=== PATIENT | female | born 1935 | race Caucasian/White ===

== ENCOUNTER 2019-09-27 10:52 | Inpatient (IN) | payer OTHER ==
--- NOTE | 2019-09-27 12:07 | PDOC ---
History of Present Illness - General Chief Complaint: Wound Stated Complaint: WOUND CARE Time Seen by Provider: 09/27/19 11:23 History Source: Patient, Old Records Exam Limitations: No Limitations - History of Present Illness Initial Comments: 09/27/19 12:40 83y F with PMH of CHF, HTN, DM, COPD, Venous Stasis presenting from [facility] for L lower leg wound. Patient states she has had this wound for about 1 year and it is not getting better and endorses pain. She was sent here for admission. Pt denies fevers, chills, back pain, chest pain, sob, n/v/d, groin pain. PMD: PMH: see hpi PSH: none Allergies: linezolid, vancomycin, Sulfa Social: smokes 3 cigarettes/day Past History - Past Medical History Allergies/Adverse Reactions: Allergies Allergy/AdvReac Type Severity Reaction Status Date / Time linezolid [From Zyvox] Allergy Unknown Verified 09/27/19 10:55 Sulfa (Sulfonamide Allergy Unknown Verified 09/27/19 10:55 Antibiotics) vancomycin Allergy Unknown Verified 09/27/19 10:55 clindamycin Allergy Verified 09/27/19 10:55 bactrim ds Allergy Unknown Uncoded 09/27/19 10:55 Home Medications: Ambulatory Orders Acetaminophen [Tylenol] 2 tab PO Q6H PRN 01/07/19 Alendronate Sodium/Vitamin D3 [Fosamax Plus D 70 mg-5,600 Iu vIT d] 1 tab PO Q7D 01/07/19 Aspirin [ASA -] 81 mg PO DAILY 01/07/19 Bethanechol Chloride [Urecholine] 1 tab PO TID 01/07/19 Finasteride 1 tab PO DAILY 01/07/19 Furosemide [Lasix -] 20 mg PO BID 01/07/19 Lamotrigine 100 mg PO BID 01/07/19 Magnesium Hydroxide [Milk of Magnesia -] 30 ml PO DAILY PRN 01/07/19 Metoprolol Succinate [Toprol XL -] 12.5 mg PO DAILY 01/07/19 Multivitamin [One-Daily Multi-Vitamin] 1 tab PO DAILY 01/07/19 Olanzapine [Zyprexa -] 1 tab PO HS 01/07/19 Pramipexole Dihydrochloride [Mirapex -] 0.125 mg PO BID 01/07/19 Tiotropium [place] [Spiriva] 1 cap IH DAILY 01/07/19 Fluoxetine HCl 30 mg PO DAILY 04/01/19 Ascorbic Acid [Vitamin C -] 1 tab PO DAILY 04/15/19 Collagenase Clostridium Hist. [Santyl -] 1 applic TD BID 09/27/19 Lamotrigine 100 mg PO BID 09/27/19 Metoprolol Succinate 09/27/19 Anemia: Yes COPD: No CHF: Yes Diabetes: Yes (Mild diabetic) GI Disorders: No Disorders: Yes (INCONTENIENCE) HTN: Yes Liver Disease: No Psychiatric Problems: Yes Seizures: Yes Thyroid Disease: No - Surgical History Abdominal Surgery: Yes (HERNIA) - Psycho Social/Smoking Cessation Hx Smoking History: Current every day smoker Have you smoked in the past 12 months: Yes Number of Cigarettes Smoked Daily: 6 Information on smoking cessation initiated: Yes Hx Alcohol Use: No Drug/Substance Use Hx: No Substance Use Type: None Review of Systems - Review of Systems Constitutional: No: Chills, Fever, Malaise HEENTM: No: Symptoms Reported Respiratory: No: Symptoms reported Cardiac (ROS): No: Symptoms Reported ABD/GI: No: Symptoms Reported : No: Symptoms Reported Musculoskeletal: No: Symptoms Reported Integumentary: Yes: See HPI Neurological: No: Symptoms reported *Physical Exam - Vital Signs Last Vital Signs Temp Pulse Resp BP Pulse Ox 97.6 F 92 H 20 109/52 L 96 09/27/19 10:56 09/27/19 10:56 09/27/19 10:56 09/27/19 10:56 09/27/19 10:56 - Physical Exam General Appearance: Yes: Appropriately Dressed, Obese. No: Apparent Distress HEENT: positive: EOMI, ALVINO, Other (edentulous) Neck: positive: Trachea midline, Supple Respiratory/Chest: positive: Lungs Clear, Normal Breath Sounds. negative: Paradoxal Breathing, Crackles, Rales, Rhonchi, Stridor, Wheezing Cardiovascular: positive: Regular Rhythm, Regular Rate, S1, S2. negative: Edema , JVD, Murmur Vascular Pulses: Dorsalis-Pedis (R): 1+, Doralis-Pedis (L): 1+ Gastrointestinal/Abdominal: positive: Normal Bowel Sounds, Soft. negative: Tender Musculoskeletal: negative: CVA Tenderness Extremity: positive: Normal Capillary Refill, Pedal Edema (bilateral edema in lower extremities. LLE below knee shows circumferencial venous stasis ulcer with fibrotic tissue and weeping. Erythematous.), Swelling, Calf Tenderness (LLE ), Erythema Integumentary: positive: Normal Color, Dry, Warm, Erythema (below knee with swelling and warmth. No streaking, no evidence of groin celulitis) Neurologic: positive: indigo vat tender cloth II-XII NML intact, Fully Oriented, Alert, Normal Mood/ Affect, Normal Response, Motor Strength 12/19 ED Treatment Course - LABORATORY CBC & Chemistry Diagram: 09/27/19 11:20 09/27/19 11:20 - RADIOLOGY Radiology Studies Ordered: Category Date Time Status CHEST X-RAY PORTABLE* [RAD] Stat Radiology 09/27/19 11:23 Taken Medical Decision Making - Medical Decision Making 83y F presenting for LLE cellulitis and wound care vitals are wnl. suspect cellulitis superimposed on venous stasis ulcer. will perform labs, cultures and cxr, esr, crp abx. pt is allergic to vanc, will call Dr. Velásquez. given Zosyn. 09/27/19 12:[address] Velásquez, went straight to voicectil, LM. overhead paged as well; no response 09/27/19 15:46 no white count, elevated esr and crp no evidence of osteo on xr of lower extremity. will admit to Dr. Romero Discharge - Discharge Information Problems reviewed: Yes Clinical Impression/Diagnosis: Cellulitis Qualifiers: Site of cellulitis: extremity Site of cellulitis of extremity: lower extremity Laterality: left Qualified Code(s): L03.116 - Cellulitis of left lower limb Venous stasis ulcer Qualifiers: Venous stasis ulcer site: other part of lower leg Varicose vein presence: unspecified whether present Laterality: left Non-pressure ulcer stage: unspecified non-pressure ulcer stage Qualified Code(s): I83.028 - Varicose veins of left lower extremity with ulcer other part of lower leg Condition: Stable - Admission Yes - Follow up/Referral - Patient Discharge Instructions - Post Discharge Activity
[2019-09-27 12:15] LABS: BASO % 0.2 % (0-2.0); EOS % 2.9 % (0-4.5); HEMATOCRIT 31.8 % (32.4-45.2); HEMOGLOBIN 10.3 GM/dL (10.7-15.3); LYMPH % 20.3 % (8-40); MCH 28.6 pg (25.7-33.7); MCHC 32.5 g/dl (32.0-36.0); MEAN CELL VOLUME 88.1 fl (80-96); MEAN PLT VOLUME 7.4 fl (7.5-11.1); MONO % 8.8 % (3.8-10.2); NEUT % 67.8 % (42.8-82.8); PLATELET COUNT 178 K/MM3 (134-434); RBC 3.61 M/mm3 (3.60-5.2); RDW 15.5 % (11.6-15.6); WHITE BLOOD COUNT 6.3 K/mm3 (4.0-10.0)
[2019-09-27] MEDS ORDERED: PIPERACILLIN/TAZOB 3.375 GM 3.375 GM in DEXTROSE 5%-WATER - 50 ML IVPB ONE (12:25)
[2019-09-27 12:31] LABS: INR 1.13 (0.83-1.09); PROTHROMBIN TIME (PATIENT) 13.3 SEC (9.7-13.0)
[2019-09-27 12:34] LABS: ACTIVATED PTT 92.6 SECONDS (25.2-36.5)
[2019-09-27] MEDS ORDERED: PIPERACILLIN/TAZOB 3.375 GM 3.375 GM/50 ML BAG IVPB ONE (12:53)
[2019-09-27 13:05] LABS: ALBUMIN 2.6 g/dl (3.4-5.0); ALK PHOS 100 U/L (45-117); ANION GAP 7 MMOL/L (8-16); BILIRUBIN,TOTAL 0.5 mg/dL (0.2-1); BLOOD UREA NITROGEN 52.8 mg/dL (7-18); CALCIUM 8.6 mg/dL (8.5-10.1); CHLORIDE 104 mmol/L (98-107); CO2 25 mmol/L (21-32); CREATININE 1.2 mg/dL (0.55-1.3); GLUCOSE,RANDOM 98 mg/dL (74-106); POTASSIUM 4.5 mmol/L (3.5-5.1); SGOT/AST 21 U/L (15-37); SGPT/ALT 18 U/L (13-61); SODIUM 136 mmol/L (136-145); TOT PROT 6.5 g/dl (6.4-8.2)
--- NOTE | 2019-09-27 13:28 | PDOC ---
Attending Attestation - Resident Resident Name: Abby Alicia - ED Attending Attestation I have performed the following: I have examined & evaluated the patient, The case was reviewed & discussed with the resident, I agree w/resident's findings & plan - HPI HPI: 09/27/19 13:26 83-year-old female sent from [facility] for acute infection of chronic left lower extremity wounds/ulcers. Patient reports increasing pain, denies fevers or chills. - Physicial Exam PE: 09/27/19 13:26 Afebrile here, hemodynamically stable Alert, no acute distress Heart is regular, lungs are clear Abdomen benign Circumferential left lower extremity mid lower leg wounds, scattered large ulcerations without muscle exposure or bone exposure, positive cellulitis, positive distal pulses without foot gangrene - Medical Decision Making 09/27/19 13:27 83-year-old female with chronic left lower extremity skin ulcerations now with superimposed infection, sent from [facility] by infectious disease for antibiotics and wound care. Labs including blood and wound cultures IV antibiotics Left lower leg x-ray ID and vascular consults Admit Heart Score/ECG Review #1 ECG reviewed & interpreted by me at: 11:50 General ECG Interpretation: Sinus Rhythm, Normal Rate (83), Normal Intervals ( qtc 460), No acute ischemic changes (inf q wave III/AVF)
[2019-09-27] MEDS ORDERED: ACETAMINOPHEN 1000 MG/100 ML VIAL (NON FORMULARY) IVPB ONE (14:02)
[2019-09-27] MEDS ORDERED: ACETAMINOPHEN INJECTION 100 ML IVPB ONE (14:04)
--- NOTE | 2019-09-27 16:55 | HP ---
Admitting History and Physical - Primary Care Physician PCP: Nicholas Romero - Admission History of Present Illness: 83y F with PMH of CHF, HTN, DM, COPD, Venous Stasis presenting from [facility] for L lower leg wound. Patient states she has had this wound for about 1 year and it is not getting better and endorses pain. She was sent here for admission. Pt denies fevers, chills, back pain, chest pain, sob, n/v/d, groin pain. - Past Medical History Cardiovascular: Yes: CHF, HTN Endocrine: Yes: Diabetes Mellitus - Smoking History Smoking history: Current every day smoker Have you smoked in the past 12 months: Yes Aproximately how many cigarettes per day: 6 - Alcohol/Substance Use Hx Alcohol Use: No Home Medications - Allergies Allergies/Adverse Reactions: Allergies Allergy/AdvReac Type Severity Reaction Status Date / Time linezolid [From Zyvox] Allergy Unknown Verified 09/27/19 10:55 Sulfa (Sulfonamide Allergy Unknown Verified 09/27/19 10:55 Antibiotics) vancomycin Allergy Unknown Verified 09/27/19 10:55 clindamycin Allergy Verified 09/27/19 10:55 bactrim ds Allergy Unknown Uncoded 09/27/19 10:55 - Home Medications Home Medications: Ambulatory Orders Acetaminophen [Tylenol] 2 tab PO Q6H PRN 01/07/19 Alendronate Sodium/Vitamin D3 [Fosamax Plus D 70 mg-5,600 Iu vIT d] 1 tab PO Q7D 01/07/19 Aspirin [ASA -] 81 mg PO DAILY 01/07/19 Bethanechol Chloride [Urecholine] 1 tab PO TID 01/07/19 Finasteride 1 tab PO DAILY 01/07/19 Furosemide [Lasix -] 20 mg PO BID 01/07/19 Lamotrigine 100 mg PO BID 01/07/19 Magnesium Hydroxide [Milk of Magnesia -] 30 ml PO DAILY PRN 01/07/19 Metoprolol Succinate [Toprol XL -] 12.5 mg PO DAILY 01/07/19 Multivitamin [One-Daily Multi-Vitamin] 1 tab PO DAILY 01/07/19 Olanzapine [Zyprexa -] 1 tab PO HS 01/07/19 Pramipexole Dihydrochloride [Mirapex -] 0.125 mg PO BID 01/07/19 Tiotropium [place] [Spiriva] 1 cap IH DAILY 01/07/19 Fluoxetine HCl 30 mg PO DAILY 04/01/19 Ascorbic Acid [Vitamin C -] 1 tab PO DAILY 04/15/19 Collagenase Clostridium Hist. [Santyl -] 1 applic TD BID 09/27/19 Lamotrigine 100 mg PO BID 09/27/19 Metoprolol Succinate 09/27/19 Physical Examination Vital Signs: Vital Signs Temperature 97.6 F 09/27/19 10:56 Pulse Rate 92 H 09/27/19 10:56 Respiratory Rate 09/27/19 10:56 Blood Pressure 109/52 L 09/27/19 10:56 O2 Sat by Pulse Oximetry (%) 96 09/27/19 10:56 Constitutional: Yes: No Distress HENT: Yes: Atraumatic Neck: Yes: Supple Cardiovascular: Yes: Regular Rate and Rhythm Respiratory: Yes: CTA Bilaterally Gastrointestinal: Yes: Normal Bowel Sounds Extremities: Yes: Other (L gurpreet cellulitis) Neurological: Yes: Alert, Oriented Labs: CBC, BMP 09/27/19 11:20 09/27/19 11:20 Problem List - Problems (1) HTN (hypertension) Assessment/Plan: monitor on meds Code(s): I10 - ESSENTIAL (PRIMARY) HYPERTENSION (2) Cellulitis Assessment/Plan: iv abx id on board wound care Code(s): L03.90 - CELLULITIS, UNSPECIFIED Qualifiers: Site of cellulitis: extremity Site of cellulitis of extremity: lower extremity Laterality: left Qualified Code(s): L03.116 - Cellulitis of left lower limb (3) Venous stasis ulcer Code(s): I83.009 - VARICOSE VEINS OF UNSP LOWER EXTREMITY W ULCER OF UNSP SITE; L97.909 - NON-PRS CHRONIC ULC UNSP PRT OF UNSP LOW LEG W UNSP SEVERITY Qualifiers: Venous stasis ulcer site: other part of lower leg Varicose vein presence: unspecified whether present Laterality: left Non-pressure ulcer stage: unspecified non-pressure ulcer stage Qualified Code(s): I83.028 - Varicose veins of left lower extremity with ulcer other part of lower leg; L97.829 - Non- pressure chronic ulcer of other part of left lower leg with unspecified severity Assessment/Plan Laboratory Tests 09/27/19 09/27/1909/27/20 11:20 11:20 11:20 WBC 6.3 RBC 3.61 Hgb 10.3 L Hct 31.8 L MCV 88.1 MCH 28.6 MCHC 32.5 RDW 15.5 Plt Count 178 D MPV 7.4 L Absolute Neuts (auto) 4.3 Neutrophils % 67.8 Lymphocytes % 20.3 Monocytes % 8.8 Eosinophils % 2.9 Basophils % 0.2 Nucleated RBC % 0 ESR 89 H PT with INR INR PTT (Actin FS) Sodium 136 Potassium 4.5 Chloride 104 Carbon Dioxide 25 Anion Gap 7 L BUN 52.8 H Creatinine 1.2 Est GFR (CKD-EPI)AfAm 48.40 Est GFR (CKD-EPI)NonAf 41.76 Random Glucose 98 Calcium 8.6 Total Bilirubin 0.5 AST 21 ALT 18 Alkaline Phosphatase 100 Troponin I < 0.02 C-Reactive Protein 5.7 H Total Protein 6.5 Albumin 2.6 L 09/27/19 11:20 WBC RBC Hgb Hct MCV MCH MCHC RDW Plt Count MPV Absolute Neuts (auto) Neutrophils % Lymphocytes % Monocytes % Eosinophils % Basophils % Nucleated RBC % ESR PT with INR 13.30 H INR 1.13 H PTT (Actin FS) 92.6 H Sodium Potassium Chloride Carbon Dioxide Anion Gap BUN Creatinine Est GFR (CKD-EPI)AfAm Est GFR (CKD-EPI)NonAf Random Glucose Calcium Total Bilirubin AST ALT Alkaline Phosphatase Troponin I C-Reactive Protein Total Protein Albumin Active Medications Generic Name Dose Route Start Last Admin Trade Name Freq PRN Reason Stop Dose Admin Ascorbic Acid 500 mg 09/28/19 10:00 09/28/19 09:24 Vitamin C - PO 500 mg DAILY EVELINA Administration Aspirin 81 mg 09/28/19 10:00 09/28/19 09:24 Asa - PO 81 mg DAILY EVELINA Administration Bethanechol Chloride 50 mg 09/27/19 22:00 09/28/19 13:32 Urecholine - PO 50 mg TID EVELINA Administration Finasteride 5 mg 09/28/19 10:00 09/28/19 10:29 Proscar - PO 5 mg DAILY EVELINA Administration Fluoxetine HCl 10 mg/ 30 mg 09/28/19 10:00 09/28/19 11:11 Fluoxetine HCl 20 mg PO 30 mg DAILY EVELINA Administration Furosemide 20 mg 09/28/19 06:00 09/28/19 13:31 Lasix - PO 20 mg BIDLASIX EVELINA Administration Heparin Sodium (Porcine) 5,000 unit 09/27/19 22:00 09/28/19 09:24 Heparin - SQ 5,000 unit BID EVELINA Administration Piperacillin Sod/Tazobactam 50 mls @ 100 mls/hr 09/28/19 12:45 09/28/19 17:52 Sod 3.375 gm/ Dextrose IVPB Not Given Q8H-IV EVELINA Protocol Lamotrigine 100 mg 09/27/19 22:00 09/28/19 10:30 Lamictal - PO 100 mg BID EVELINA Administration Metoprolol Succinate 12.5 mg 09/28/19 10:00 09/28/19 09:24 Toprol Xl - PO 12.5 mg DAILY EVELINA Administration Pramipexole Dihydrochloride 0.125 mg 09/27/19 22:00 09/28/19 09:25 Mirapex - PO 0.125 mg BID EVELINA Administration Tiotropium [place] 2 puff 09/28/19 10:00 09/28/19 11:11 Spiriva Respimat IH 2 puff DAILY EVELINA Administration
[2019-09-27 18:34] VITALS: BMI 27.0
[2019-09-27] MEDS ORDERED: PT OWN MED DRAWER 7, Y5N ONE (21:10)
[2019-09-27] MEDS: lamoTRIgine 100 MG TABLET PO SCH (21:57)
[2019-09-27] MEDS: HEPARIN NA (PORCINE) 5,000 UNITS/ML 1ML VIAL SQ SCH (21:57)
[2019-09-27] MEDS: BETHANECHOL CHLORIDE 25 MG TABLET PO SCH (21:57)
[2019-09-27] MEDS: PRAMIPEXOLE DIHYDROCHLORIDE 0.125 MG TABLET PO SCH (21:57)
[2019-09-28] MEDS: BETHANECHOL CHLORIDE 25 MG TABLET PO SCH ×3 (06:34→21:07)
[2019-09-28] MEDS: FUROSEMIDE 20 MG TABLET (FP) PO SCH ×2 (06:34→13:31)
[2019-09-28] MEDS: lamoTRIgine 100 MG TABLET PO SCH ×3 (06:34→21:08)
[2019-09-28] MEDS ORDERED: PT OWN MED DRAWER 7, Y5N ONE ×2 (08:54→21:04)
[2019-09-28] MEDS: metoPROLOL SUCCINATE 25 MG TAB.SR.24H (FP) PO SCH (09:24)
[2019-09-28] MEDS: ASPIRIN 81 MG CHEWABLE TABLETS PO SCH (09:24)
[2019-09-28] MEDS: HEPARIN NA (PORCINE) 5,000 UNITS/ML 1ML VIAL SQ SCH ×2 (09:24→21:07)
[2019-09-28] MEDS: ASCORBIC ACID 500 MG TABLET (FP) PO SCH (09:24)
[2019-09-28] MEDS: FINASTERIDE 5 MG TABLET (FP) PO SCH ×2 (09:25→10:29)
[2019-09-28] MEDS: PRAMIPEXOLE DIHYDROCHLORIDE 0.125 MG TABLET PO SCH ×2 (09:25→21:07)
[2019-09-28] MEDS ORDERED: FLUoxetine HCL 20 MG CAPSULE PO SCH (10:00)
--- NOTE | 2019-09-28 10:44 | EKG ---
Test Reason : Blood Pressure : / mmHG Vent. Rate : 083 BPM Atrial Rate : 083 BPM P-R Int : 146 ms QRS Dur : 092 ms QT Int : 392 ms P-R-T Axes : 076 -14 051 degrees QTc Int : 460 ms POOR DATA QUALITY, INTERPRETATION MAY BE ADVERSELY AFFECTED NORMAL SINUS RHYTHM LOW VOLTAGE QRS CANNOT RULE OUT INFERIOR INFARCT , AGE UNDETERMINED ABNORMAL ECG NO PREVIOUS ECGS AVAILABLE Confirmed by Jeff Grande MD ([id number]) on 09/28/2019 10:43:45 AM Referred By: Confirmed By:Jeff Grande MD
[2019-09-28] MEDS: TIOTROPIUM BROMIDE 2.5 MCG (SPIRIVA) RESPIMAT INHALER IH SCH (11:11)
[2019-09-28] MEDS: FLUOXETINE HCL PO SCH (11:11)
--- NOTE | 2019-09-28 12:43 | CON.ID ---
Consult Consult Specialty:: infectious diseases Referred by:: Reason for Consultation:: wounds of the legs. infected. cellulitis of the leg - History of Present Illness Chief Complaint: pain in the leg History of Present Illness: 83y F with PMH of CHF, HTN, DM, COPD, Venous Stasis presenting from [facility] for L lower leg wound. Patient states she has had this wound for about 1 year and it is not getting better and endorses pain. Pt denies fevers, chills, back pain, chest pain, sob, n/v/d, groin pain. patients wound are draining very badly and patient also has foul smell with erythema of the legs - History Source History Provided By: Patient, Medical Record Limitations to Obtaining History: Clinical Condition - Past Medical History Cardio/Vascular: Yes: CHF, HTN Endocrine: Yes: Diabetes Mellitus - Alcohol/Substance Use Hx Alcohol Use: No - Smoking History Smoking history: Current every day smoker Have you smoked in the past 12 months: Yes Aproximately how many cigarettes per day: 6 Home Medications - Allergies Allergies/Adverse Reactions: Allergies Allergy/AdvReac Type Severity Reaction Status Date / Time linezolid [From Zyvox] Allergy Unknown Verified 09/27/19 10:55 Sulfa (Sulfonamide Allergy Unknown Verified 09/27/19 10:55 Antibiotics) vancomycin Allergy Unknown Verified 09/27/19 10:55 clindamycin Allergy Verified 09/27/19 10:55 bactrim ds Allergy Unknown Uncoded 09/27/19 10:55 - Home Medications Home Medications: Ambulatory Orders Acetaminophen [Tylenol] 2 tab PO Q6H PRN 01/07/19 Alendronate Sodium/Vitamin D3 [Fosamax Plus D 70 mg-5,600 Iu vIT d] 1 tab PO Q7D 01/07/19 Aspirin [ASA -] 81 mg PO DAILY 01/07/19 Bethanechol Chloride [Urecholine] 1 tab PO TID 01/07/19 Finasteride 1 tab PO DAILY 01/07/19 Furosemide [Lasix -] 20 mg PO BID 01/07/19 Lamotrigine 100 mg PO BID 01/07/19 Magnesium Hydroxide [Milk of Magnesia -] 30 ml PO DAILY PRN 01/07/19 Metoprolol Succinate [Toprol XL -] 12.5 mg PO DAILY 01/07/19 Multivitamin [One-Daily Multi-Vitamin] 1 tab PO DAILY 01/07/19 Olanzapine [Zyprexa -] 1 tab PO HS 01/07/19 Pramipexole Dihydrochloride [Mirapex -] 0.125 mg PO BID 01/07/19 Tiotropium [place] [Spiriva] 1 cap IH DAILY 01/07/19 Fluoxetine HCl 30 mg PO DAILY 04/01/19 Ascorbic Acid [Vitamin C -] 1 tab PO DAILY 04/15/19 Collagenase Clostridium Hist. [Santyl -] 1 applic TD BID 09/27/19 Lamotrigine 100 mg PO BID 09/27/19 Metoprolol Succinate 09/27/19 Review of Systems - Review of Systems Constitutional: reports: No Symptoms Eyes: reports: No Symptoms HENT: reports: No Symptoms Neck: reports: No Symptoms Cardiovascular: reports: No Symptoms Respiratory: reports: No Symptoms Gastrointestinal: reports: No Symptoms Integumentary: reports: Wound Neurological: reports: No Symptoms Endocrine: reports: No Symptoms Hematology/Lymphatic: reports: No Symptoms Psychiatric: reports: No Symptoms Physical Exam Vital Signs: Vital Signs Temperature 98.3 F 09/28/19 10:00 Pulse Rate 92 H 09/28/19 10:00 Respiratory Rate 09/28/19 10:00 Blood Pressure 102/63 09/28/19 10:00 O2 Sat by Pulse Oximetry (%) 95 09/28/19 10:00 Constitutional: Yes: Calm, Mild Distress Eyes: Yes: Conjunctiva Clear Cardiovascular: Yes: Regular Rate and Rhythm Respiratory: Yes: Regular, CTA Bilaterally Gastrointestinal: Yes: Normal Bowel Sounds, Soft Musculoskeletal: Yes: Other Extremities: Yes: Erythema, Other Integumentary: Yes: Erythema, Venous Stasis Changes, Other Wound/Incision: Yes: Clean/Dry Neurological: Yes: Alert, Oriented Psychiatric: Yes: Alert, Oriented Labs: CBC, BMP 09/27/19 11:20 09/27/19 11:20 Imaging - Results Chest X-ray: Report Reviewed, Image Reviewed X-ray: Report Reviewed, Image Reviewed Assessment/Plan Problem List - Problems (1) HTN (hypertension) Code(s): I10 - ESSENTIAL (PRIMARY) HYPERTENSION (2) Cellulitis Code(s): L03.90 - CELLULITIS, UNSPECIFIED Qualifiers: Site of cellulitis: extremity Site of cellulitis of extremity: lower extremity Laterality: left Qualified Code(s): L03.116 - Cellulitis of left lower limb (3) Venous stasis ulcer Code(s): I83.009 - VARICOSE VEINS OF UNSP LOWER EXTREMITY W ULCER OF UNSP SITE; L97.909 - NON-PRS CHRONIC ULC UNSP PRT OF UNSP LOW LEG W UNSP SEVERITY Qualifiers: Venous stasis ulcer site: other part of lower leg Varicose vein presence: unspecified whether present Laterality: left Non-pressure ulcer stage: unspecified non-pressure ulcer stage Qualified Code(s): I83.028 - Varicose veins of left lower extremity with ulcer other part of lower leg; L97.829 - Non- pressure chronic ulcer of other part of left lower leg with unspecified severity infected wounds plan wound care abx need debridement await for cx report
[2019-09-28] MEDS ORDERED: PIPERACILLIN/TAZOBACTAM 3.375 GM VIAL IVPB ONE (13:29)
[2019-09-28] MEDS ORDERED: DEXTROSE 5%-WATER - 50 ML IVPB ONE (13:30)
[2019-09-28] MEDS: PIPERACILLIN/TAZOB 3.375 GM 3.375 GM in DEXTROSE 5%-WATER - 50 ML IVPB SCH ×2 (13:31→17:52)
--- NOTE | 2019-09-28 19:12 | PN ---
Progress Note, Physician - Current Medication List Current Medications: Active Medications Ascorbic Acid (Vitamin C -) 500 mg PO DAILY [facility] Last Admin: 09/28/19 09:24 Dose: 500 mg Aspirin (Asa -) 81 mg PO DAILY [facility] Last Admin: 09/28/19 09:24 Dose: 81 mg Bethanechol Chloride (Urecholine -) 50 mg PO TID [facility] Last Admin: 09/28/19 13:32 Dose: 50 mg Finasteride (Proscar -) 5 mg PO DAILY [facility] Last Admin: 09/28/19 10:29 Dose: 5 mg Fluoxetine HCl 10 mg/ (Fluoxetine HCl 20 mg) 30 mg PO DAILY [facility] Last Admin: 09/28/19 11:11 Dose: 30 mg Furosemide (Lasix -) 20 mg PO BIDLASIX [facility] Last Admin: 09/28/19 13:31 Dose: 20 mg Heparin Sodium (Porcine) (Heparin -) 5,000 unit SQ BID [facility] Last Admin: 09/28/19 09:24 Dose: 5,000 unit Piperacillin Sod/Tazobactam (Sod 3.375 gm/ Dextrose) 50 mls @ 100 mls/hr IVPB Q8H-IV [facility]; Protocol Last Admin: 09/28/19 17:52 Dose: Not Given Lamotrigine (Lamictal -) 100 mg PO BID [facility] Last Admin: 09/28/19 10:30 Dose: 100 mg Metoprolol Succinate (Toprol Xl -) 12.5 mg PO DAILY [facility] Last Admin: 09/28/19 09:24 Dose: 12.5 mg Pramipexole Dihydrochloride (Mirapex -) 0.125 mg PO BID [facility] Last Admin: 09/28/19 09:25 Dose: 0.125 mg Tiotropium [place] (Spiriva Respimat) 2 puff IH DAILY [facility] Last Admin: 09/28/19 11:11 Dose: 2 puff - Objective Vital Signs: Vital Signs Temperature 98.3 F 09/28/19 10:00 Pulse Rate 92 H 09/28/19 10:00 Respiratory Rate 20 09/28/19 10:00 Blood Pressure 102/63 09/28/19 10:00 O2 Sat by Pulse Oximetry (%) 95 09/28/19 10:00 Constitutional: Yes: No Distress HENT: Yes: Atraumatic Neck: Yes: Supple Cardiovascular: Yes: Regular Rate and Rhythm Respiratory: Yes: CTA Bilaterally Gastrointestinal: Yes: Normal Bowel Sounds Extremities: Yes: Other (llex cellulitis) Neurological: Yes: Alert, Oriented Labs: CBC, BMP 09/27/19 11:20 09/27/19 11:20 INR, PTT INR 1.13 (0.83-1.09) H 09/27/19 11:20 Problem List - Problems (1) HTN (hypertension) Assessment/Plan: monitor on meds Code(s): I10 - ESSENTIAL (PRIMARY) HYPERTENSION (2) Cellulitis Assessment/Plan: iv abx id on board Code(s): L03.90 - CELLULITIS, UNSPECIFIED Qualifiers: Site of cellulitis: extremity Site of cellulitis of extremity: lower extremity Laterality: left Qualified Code(s): L03.116 - Cellulitis of left lower limb (3) Venous stasis ulcer Code(s): I83.009 - VARICOSE VEINS OF UNSP LOWER EXTREMITY W ULCER OF UNSP SITE; L97.909 - NON-PRS CHRONIC ULC UNSP PRT OF UNSP LOW LEG W UNSP SEVERITY Qualifiers: Venous stasis ulcer site: other part of lower leg Varicose vein presence: unspecified whether present Laterality: left Non-pressure ulcer stage: unspecified non-pressure ulcer stage Qualified Code(s): I83.028 - Varicose veins of left lower extremity with ulcer other part of lower leg; L97.829 - Non- pressure chronic ulcer of other part of left lower leg with unspecified severity
[2019-09-29] MEDS ORDERED: DEXTROSE 5%-WATER - 50 ML IVPB ONE ×3 (01:34→17:15)
[2019-09-29] MEDS ORDERED: PIPERACILLIN/TAZOBACTAM 3.375 GM VIAL IVPB ONE ×3 (01:34→17:15)
[2019-09-29] MEDS: PIPERACILLIN/TAZOB 3.375 GM 3.375 GM in DEXTROSE 5%-WATER - 50 ML IVPB SCH ×3 (01:41→17:27)
[2019-09-29] MEDS ORDERED: ACETAMINOPHEN 325 MG TABLET (FP) PO ONE (05:15)
[2019-09-29] MEDS: BETHANECHOL CHLORIDE 25 MG TABLET PO SCH ×3 (05:22→21:27)
[2019-09-29] MEDS: FUROSEMIDE 20 MG TABLET (FP) PO SCH ×2 (05:22→13:12)
[2019-09-29] MEDS: metoPROLOL SUCCINATE 25 MG TAB.SR.24H (FP) PO SCH (09:15)
[2019-09-29] MEDS: PRAMIPEXOLE DIHYDROCHLORIDE 0.125 MG TABLET PO SCH ×2 (09:15→21:26)
[2019-09-29] MEDS: lamoTRIgine 100 MG TABLET PO SCH ×2 (09:15→21:27)
[2019-09-29] MEDS: ASPIRIN 81 MG CHEWABLE TABLETS PO SCH (09:15)
[2019-09-29] MEDS: FINASTERIDE 5 MG TABLET (FP) PO SCH (09:15)
[2019-09-29] MEDS: ASCORBIC ACID 500 MG TABLET (FP) PO SCH (09:15)
[2019-09-29] MEDS: HEPARIN NA (PORCINE) 5,000 UNITS/ML 1ML VIAL SQ SCH ×2 (09:15→21:26)
[2019-09-29] MEDS: FLUOXETINE HCL PO SCH (09:16)
[2019-09-29] MEDS: TIOTROPIUM BROMIDE 2.5 MCG (SPIRIVA) RESPIMAT INHALER IH SCH (09:20)
--- NOTE | 2019-09-29 11:00 | PN ---
Progress Note, Physician History of Present Illness: stable wounds draining profusely - Current Medication List Current Medications: Active Medications Ascorbic Acid (Vitamin C -) 500 mg PO DAILY [facility] Last Admin: 09/29/19 09:15 Dose: 500 mg Aspirin (Asa -) 81 mg PO DAILY [facility] Last Admin: 09/29/19 09:15 Dose: 81 mg Bethanechol Chloride (Urecholine -) 50 mg PO TID [facility] Last Admin: 09/29/19 05:22 Dose: 50 mg Finasteride (Proscar -) 5 mg PO DAILY [facility] Last Admin: 09/29/19 09:15 Dose: 5 mg Fluoxetine HCl 10 mg/ (Fluoxetine HCl 20 mg) 30 mg PO DAILY [facility] Last Admin: 09/29/19 09:16 Dose: 30 mg Furosemide (Lasix -) 20 mg PO BIDLASIX [facility] Last Admin: 09/29/19 05:22 Dose: 20 mg Heparin Sodium (Porcine) (Heparin -) 5,000 unit SQ BID [facility] Last Admin: 09/29/19 09:15 Dose: 5,000 unit Piperacillin Sod/Tazobactam (Sod 3.375 gm/ Dextrose) 50 mls @ 100 mls/hr IVPB Q8H-IV [facility]; Protocol Last Admin: 09/29/19 09:15 Dose: 100 mls/hr Lamotrigine (Lamictal -) 100 mg PO BID [facility] Last Admin: 09/29/19 09:15 Dose: 100 mg Metoprolol Succinate (Toprol Xl -) 12.5 mg PO DAILY [facility] Last Admin: 09/29/19 09:15 Dose: 12.5 mg Pramipexole Dihydrochloride (Mirapex -) 0.125 mg PO BID [facility] Last Admin: 09/29/19 09:15 Dose: 0.125 mg Tiotropium [place] (Spiriva Respimat) 2 puff IH DAILY [facility] Last Admin: 09/29/19 09:20 Dose: 2 puff - Objective Vital Signs: Vital Signs Temperature 98.2 F 09/29/19 05:58 Pulse Rate 88 09/29/19 05:58 Respiratory Rate 20 09/29/19 05:58 Blood Pressure 108/73 09/29/19 05:58 O2 Sat by Pulse Oximetry (%) 95 09/28/19 10:00 Constitutional: Yes: No Distress, Calm Cardiovascular: Yes: S1, S2 Respiratory: Yes: Regular, CTA Bilaterally Gastrointestinal: Yes: Normal Bowel Sounds, Soft Musculoskeletal: Yes: WNL Extremities: Yes: Erythema, Other Wound/Incision: Yes: Draining Neurological: Yes: Alert, Oriented Psychiatric: Yes: Alert, Oriented Labs: CBC, BMP 09/27/19 11:20 09/27/19 11:20 INR, PTT INR 1.13 (0.83-1.09) H 09/27/19 11:20 Assessment/Plan Problem List - Problems (1) HTN (hypertension) Code(s): I10 - ESSENTIAL (PRIMARY) HYPERTENSION (2) Cellulitis Code(s): L03.90 - CELLULITIS, UNSPECIFIED Qualifiers: Site of cellulitis: extremity Site of cellulitis of extremity: lower extremity Laterality: left Qualified Code(s): L03.116 - Cellulitis of left lower limb (3) Venous stasis ulcer Code(s): I83.009 - VARICOSE VEINS OF UNSP LOWER EXTREMITY W ULCER OF UNSP SITE; L97.909 - NON-PRS CHRONIC ULC UNSP PRT OF UNSP LOW LEG W UNSP SEVERITY Qualifiers: Venous stasis ulcer site: other part of lower leg Varicose vein presence: unspecified whether present Laterality: left Non-pressure ulcer stage: unspecified non-pressure ulcer stage Qualified Code(s): I83.028 - Varicose veins of left lower extremity with ulcer other part of lower leg; L97.829 - Non- pressure chronic ulcer of other part of left lower leg with unspecified severity infected wounds plan wound care abx need debridemt wound and vascular to study rest as pr the team
--- NOTE | 2019-09-29 17:14 | PN ---
Progress Note, Physician - Current Medication List Current Medications: Active Medications Ascorbic Acid (Vitamin C -) 500 mg PO DAILY [facility] Last Admin: 09/29/19 09:15 Dose: 500 mg Aspirin (Asa -) 81 mg PO DAILY [facility] Last Admin: 09/29/19 09:15 Dose: 81 mg Bethanechol Chloride (Urecholine -) 50 mg PO TID [facility] Last Admin: 09/29/19 13:12 Dose: 50 mg Finasteride (Proscar -) 5 mg PO DAILY [facility] Last Admin: 09/29/19 09:15 Dose: 5 mg Fluoxetine HCl 10 mg/ (Fluoxetine HCl 20 mg) 30 mg PO DAILY [facility] Last Admin: 09/29/19 09:16 Dose: 30 mg Furosemide (Lasix -) 20 mg PO BIDLASIX [facility] Last Admin: 09/29/19 13:12 Dose: 20 mg Heparin Sodium (Porcine) (Heparin -) 5,000 unit SQ BID [facility] Last Admin: 09/29/19 09:15 Dose: 5,000 unit Piperacillin Sod/Tazobactam (Sod 3.375 gm/ Dextrose) 50 mls @ 100 mls/hr IVPB Q8H-IV [facility]; Protocol Last Admin: 09/29/19 09:15 Dose: 100 mls/hr Lamotrigine (Lamictal -) 100 mg PO BID [facility] Last Admin: 09/29/19 09:15 Dose: 100 mg Metoprolol Succinate (Toprol Xl -) 12.5 mg PO DAILY [facility] Last Admin: 09/29/19 09:15 Dose: 12.5 mg Pramipexole Dihydrochloride (Mirapex -) 0.125 mg PO BID [facility] Last Admin: 09/29/19 09:15 Dose: 0.125 mg Tiotropium [place] (Spiriva Respimat) 2 puff IH DAILY [facility] Last Admin: 09/29/19 09:20 Dose: 2 puff - Objective Vital Signs: Vital Signs Temperature 97.8 F 09/29/19 13:33 Pulse Rate 81 09/29/19 13:33 Respiratory Rate 18 09/29/19 13:33 Blood Pressure 96/60 09/29/19 13:33 O2 Sat by Pulse Oximetry (%) 99 09/29/19 10:00 Constitutional: Yes: No Distress HENT: Yes: Atraumatic Neck: Yes: Supple Cardiovascular: Yes: Regular Rate and Rhythm Respiratory: Yes: CTA Bilaterally Extremities: Yes: Other (llex cellulitis) Neurological: Yes: Alert, Oriented Labs: CBC, BMP 09/27/19 11:20 09/27/19 11:20 INR, PTT INR 1.13 (0.83-1.09) H 09/27/19 11:20 Problem List - Problems (1) HTN (hypertension) Assessment/Plan: monitor on meds Code(s): I10 - ESSENTIAL (PRIMARY) HYPERTENSION (2) Cellulitis Assessment/Plan: iv abx id on board Code(s): L03.90 - CELLULITIS, UNSPECIFIED Qualifiers: Site of cellulitis: extremity Site of cellulitis of extremity: lower extremity Laterality: left Qualified Code(s): L03.116 - Cellulitis of left lower limb (3) Venous stasis ulcer Code(s): I83.009 - VARICOSE VEINS OF UNSP LOWER EXTREMITY W ULCER OF UNSP SITE; L97.909 - NON-PRS CHRONIC ULC UNSP PRT OF UNSP LOW LEG W UNSP SEVERITY Qualifiers: Venous stasis ulcer site: other part of lower leg Varicose vein presence: unspecified whether present Laterality: left Non-pressure ulcer stage: unspecified non-pressure ulcer stage Qualified Code(s): I83.028 - Varicose veins of left lower extremity with ulcer other part of lower leg; L97.829 - Non- pressure chronic ulcer of other part of left lower leg with unspecified severity
[2019-09-30] MEDS ORDERED: DEXTROSE 5%-WATER - 50 ML IVPB ONE ×3 (00:08→17:18)
[2019-09-30] MEDS ORDERED: PIPERACILLIN/TAZOBACTAM 3.375 GM VIAL IVPB ONE ×3 (00:08→17:18)
[2019-09-30] MEDS: PIPERACILLIN/TAZOB 3.375 GM 3.375 GM in DEXTROSE 5%-WATER - 50 ML IVPB SCH ×3 (01:20→17:45)
[2019-09-30] MEDS: ACETAMINOPHEN 325 MG TABLET (FP) PO PRN ×2 (05:30→18:35)
[2019-09-30] MEDS: BETHANECHOL CHLORIDE 25 MG TABLET PO SCH ×3 (05:31→22:00)
[2019-09-30] MEDS: FUROSEMIDE 20 MG TABLET (FP) PO SCH ×2 (05:31→14:29)
[2019-09-30] MEDS: PRAMIPEXOLE DIHYDROCHLORIDE 0.125 MG TABLET PO SCH ×2 (09:25→21:59)
[2019-09-30] MEDS: metoPROLOL SUCCINATE 25 MG TAB.SR.24H (FP) PO SCH (09:25)
[2019-09-30] MEDS: HEPARIN NA (PORCINE) 5,000 UNITS/ML 1ML VIAL SQ SCH ×2 (09:25→21:59)
[2019-09-30] MEDS: ASCORBIC ACID 500 MG TABLET (FP) PO SCH (09:25)
[2019-09-30] MEDS: ASPIRIN 81 MG CHEWABLE TABLETS PO SCH (09:25)
[2019-09-30] MEDS: FINASTERIDE 5 MG TABLET (FP) PO SCH (09:26)
[2019-09-30] MEDS: lamoTRIgine 100 MG TABLET PO SCH ×2 (09:26→21:59)
[2019-09-30] MEDS: TIOTROPIUM BROMIDE 2.5 MCG (SPIRIVA) RESPIMAT INHALER IH SCH (09:26)
[2019-09-30] MEDS: FLUOXETINE HCL PO SCH (09:26)
--- NOTE | 2019-09-30 13:19 | PN ---
Progress Note, Physician History of Present Illness: stable no new issues wounds still draining - Current Medication List Current Medications: Active Medications Acetaminophen (Tylenol -) 650 mg PO Q6H PRN PRN Reason: FEVER Last Admin: 09/30/19 05:30 Dose: 650 mg Ascorbic Acid (Vitamin C -) 500 mg PO DAILY [facility] Last Admin: 09/30/19 09:25 Dose: 500 mg Aspirin (Asa -) 81 mg PO DAILY [facility] Last Admin: 09/30/19 09:25 Dose: 81 mg Bethanechol Chloride (Urecholine -) 50 mg PO TID [facility] Last Admin: 09/30/19 05:31 Dose: 50 mg Finasteride (Proscar -) 5 mg PO DAILY [facility] Last Admin: 09/30/19 09:26 Dose: 5 mg Fluoxetine HCl 10 mg/ (Fluoxetine HCl 20 mg) 30 mg PO DAILY [facility] Last Admin: 09/30/19 09:26 Dose: 30 mg Furosemide (Lasix -) 20 mg PO BIDLASIX [facility] Last Admin: 09/30/19 05:31 Dose: 20 mg Heparin Sodium (Porcine) (Heparin -) 5,000 unit SQ BID [facility] Last Admin: 09/30/19 09:25 Dose: 5,000 unit Piperacillin Sod/Tazobactam (Sod 3.375 gm/ Dextrose) 50 mls @ 100 mls/hr IVPB Q8H-IV [facility]; Protocol Last Admin: 09/30/19 09:27 Dose: 100 mls/hr Lamotrigine (Lamictal -) 100 mg PO BID [facility] Last Admin: 09/30/19 09:26 Dose: 100 mg Metoprolol Succinate (Toprol Xl -) 12.5 mg PO DAILY [facility] Last Admin: 09/30/19 09:25 Dose: 12.5 mg Pramipexole Dihydrochloride (Mirapex -) 0.125 mg PO BID [facility] Last Admin: 09/30/19 09:25 Dose: 0.125 mg Tiotropium [place] (Spiriva Respimat) 2 puff IH DAILY [facility] Last Admin: 09/30/19 09:26 Dose: 2 puff - Objective Vital Signs: Vital Signs Temperature 97.5 F L 09/30/19 12:58 Pulse Rate 85 09/30/19 12:58 Respiratory Rate 18 09/30/19 12:58 Blood Pressure 100/67 09/30/19 12:58 O2 Sat by Pulse Oximetry (%) 96 09/30/19 10:00 Constitutional: Yes: No Distress, Calm Cardiovascular: Yes: S1, S2 Respiratory: Yes: Regular, CTA Bilaterally Gastrointestinal: Yes: Normal Bowel Sounds, Soft Musculoskeletal: Yes: WNL Extremities: Yes: Other Wound/Incision: Yes: Dressing Removed, Draining Neurological: Yes: Alert, Oriented Psychiatric: Yes: Alert, Oriented Labs: CBC, BMP 09/27/19 11:20 09/27/19 11:20 INR, PTT INR 1.13 (0.83-1.09) H 09/27/19 11:20 Assessment/Plan Problem List - Problems (1) HTN (hypertension) Code(s): I10 - ESSENTIAL (PRIMARY) HYPERTENSION (2) Cellulitis Code(s): L03.90 - CELLULITIS, UNSPECIFIED Qualifiers: Site of cellulitis: extremity Site of cellulitis of extremity: lower extremity Laterality: left Qualified Code(s): L03.116 - Cellulitis of left lower limb (3) Venous stasis ulcer Code(s): I83.009 - VARICOSE VEINS OF UNSP LOWER EXTREMITY W ULCER OF UNSP SITE; L97.909 - NON-PRS CHRONIC ULC UNSP PRT OF UNSP LOW LEG W UNSP SEVERITY Qualifiers: Venous stasis ulcer site: other part of lower leg Varicose vein presence: unspecified whether present Laterality: left Non-pressure ulcer stage: unspecified non-pressure ulcer stage Qualified Code(s): I83.028 - Varicose veins of left lower extremity with ulcer other part of lower leg; L97.829 - Non- pressure chronic ulcer of other part of left lower leg with unspecified severity infected wounds plan wound care abx need debridemt cx report noted
--- NOTE | 2019-09-30 18:17 | PN ---
Progress Note (short form) - Note Progress Note: Vascular Surgery Pt seen and examined. left lower ext celluliitis with weeping ulcers. Dressing changed. Alginate and lisa placed. Please do daily. Continue IV antibiotics. Chadwick noriega DO
--- NOTE | 2019-09-30 18:41 | PN ---
Progress Note, Physician - Current Medication List Current Medications: Active Medications Acetaminophen (Tylenol -) 650 mg PO Q6H PRN PRN Reason: FEVER Last Admin: 09/30/19 05:30 Dose: 650 mg Acetaminophen (Tylenol -) 650 mg PO Q6H PRN PRN Reason: PAIN LEVEL 1-5 Last Admin: 09/30/19 18:35 Dose: 650 mg Ascorbic Acid (Vitamin C -) 500 mg PO DAILY [facility] Last Admin: 09/30/19 09:25 Dose: 500 mg Aspirin (Asa -) 81 mg PO DAILY [facility] Last Admin: 09/30/19 09:25 Dose: 81 mg Bethanechol Chloride (Urecholine -) 50 mg PO TID [facility] Last Admin: 09/30/19 14:29 Dose: 50 mg Finasteride (Proscar -) 5 mg PO DAILY [facility] Last Admin: 09/30/19 09:26 Dose: 5 mg Fluoxetine HCl 10 mg/ (Fluoxetine HCl 20 mg) 30 mg PO DAILY [facility] Last Admin: 09/30/19 09:26 Dose: 30 mg Furosemide (Lasix -) 20 mg PO BIDLASIX [facility] Last Admin: 09/30/19 14:29 Dose: 20 mg Heparin Sodium (Porcine) (Heparin -) 5,000 unit SQ BID [facility] Last Admin: 09/30/19 09:25 Dose: 5,000 unit Piperacillin Sod/Tazobactam (Sod 3.375 gm/ Dextrose) 50 mls @ 100 mls/hr IVPB Q8H-IV [facility]; Protocol Last Admin: 09/30/19 17:45 Dose: 100 mls/hr Lamotrigine (Lamictal -) 100 mg PO BID [facility] Last Admin: 09/30/19 09:26 Dose: 100 mg Metoprolol Succinate (Toprol Xl -) 12.5 mg PO DAILY [facility] Last Admin: 09/30/19 09:25 Dose: 12.5 mg Pramipexole Dihydrochloride (Mirapex -) 0.125 mg PO BID [facility] Last Admin: 09/30/19 09:25 Dose: 0.125 mg Tiotropium [place] (Spiriva Respimat) 2 puff IH DAILY [facility] Last Admin: 09/30/19 09:26 Dose: 2 puff - Objective Vital Signs: Vital Signs Temperature 97.5 F L 09/30/19 12:58 Pulse Rate 85 09/30/19 12:58 Respiratory Rate 18 09/30/19 12:58 Blood Pressure 100/67 09/30/19 12:58 O2 Sat by Pulse Oximetry (%) 96 09/30/19 10:00 Constitutional: Yes: No Distress HENT: Yes: Atraumatic Neck: Yes: Supple Cardiovascular: Yes: Regular Rate and Rhythm Respiratory: Yes: CTA Bilaterally Gastrointestinal: Yes: Normal Bowel Sounds Extremities: Yes: WNL Neurological: Yes: Alert, Oriented Labs: CBC, BMP 09/27/19 11:20 09/27/19 11:20 INR, PTT INR 1.13 (0.83-1.09) H 09/27/19 11:20 Problem List - Problems (1) HTN (hypertension) Assessment/Plan: monitor on meds Code(s): I10 - ESSENTIAL (PRIMARY) HYPERTENSION (2) Cellulitis Assessment/Plan: iv abx id on board wound care Code(s): L03.90 - CELLULITIS, UNSPECIFIED Qualifiers: Site of cellulitis: extremity Site of cellulitis of extremity: lower extremity Laterality: left Qualified Code(s): L03.116 - Cellulitis of left lower limb (3) Venous stasis ulcer Code(s): I83.009 - VARICOSE VEINS OF UNSP LOWER EXTREMITY W ULCER OF UNSP SITE; L97.909 - NON-PRS CHRONIC ULC UNSP PRT OF UNSP LOW LEG W UNSP SEVERITY Qualifiers: Venous stasis ulcer site: other part of lower leg Varicose vein presence: unspecified whether present Laterality: left Non-pressure ulcer stage: unspecified non-pressure ulcer stage Qualified Code(s): I83.028 - Varicose veins of left lower extremity with ulcer other part of lower leg; L97.829 - Non- pressure chronic ulcer of other part of left lower leg with unspecified severity
[2019-09-30] MEDS ORDERED: PT OWN MED DRAWER 7, Y5N ONE ×2 (21:14→21:15)
[2019-10-01] MEDS ORDERED: DEXTROSE 5%-WATER - 50 ML IVPB ONE ×3 (00:48→16:52)
[2019-10-01] MEDS ORDERED: PIPERACILLIN/TAZOBACTAM 3.375 GM VIAL IVPB ONE ×3 (00:48→16:51)
[2019-10-01] MEDS: PIPERACILLIN/TAZOB 3.375 GM 3.375 GM in DEXTROSE 5%-WATER - 50 ML IVPB SCH ×3 (01:14→17:25)
[2019-10-01] MEDS: BETHANECHOL CHLORIDE 25 MG TABLET PO SCH ×3 (06:11→21:29)
[2019-10-01] MEDS: FUROSEMIDE 20 MG TABLET (FP) PO SCH ×2 (06:12→13:05)
[2019-10-01] MEDS: ACETAMINOPHEN 325 MG TABLET (FP) PO PRN ×3 (06:13→21:28)
[2019-10-01] MEDS ORDERED: PT OWN MED DRAWER 7, Y5N ONE ×2 (09:03→21:13)
[2019-10-01] MEDS: FINASTERIDE 5 MG TABLET (FP) PO SCH (09:08)
[2019-10-01] MEDS: ASCORBIC ACID 500 MG TABLET (FP) PO SCH (09:08)
[2019-10-01] MEDS: metoPROLOL SUCCINATE 25 MG TAB.SR.24H (FP) PO SCH (09:08)
[2019-10-01] MEDS: PRAMIPEXOLE DIHYDROCHLORIDE 0.125 MG TABLET PO SCH ×2 (09:08→21:28)
[2019-10-01] MEDS: ASPIRIN 81 MG CHEWABLE TABLETS PO SCH (09:09)
[2019-10-01] MEDS: lamoTRIgine 100 MG TABLET PO SCH ×2 (09:09→21:29)
[2019-10-01] MEDS: HEPARIN NA (PORCINE) 5,000 UNITS/ML 1ML VIAL SQ SCH ×2 (09:09→21:28)
[2019-10-01] MEDS: FLUOXETINE HCL PO SCH (09:10)
[2019-10-01] MEDS: TIOTROPIUM BROMIDE 2.5 MCG (SPIRIVA) RESPIMAT INHALER IH SCH (09:10)
--- NOTE | 2019-10-01 14:00 | PN ---
Progress Note, Physician History of Present Illness: Pt is alert, without distress. States LE is "sensitive". - Current Medication List Current Medications: Active Medications Acetaminophen (Tylenol -) 650 mg PO Q6H PRN PRN Reason: FEVER Last Admin: 10/01/19 13:53 Dose: 650 mg Acetaminophen (Tylenol -) 650 mg PO Q6H PRN PRN Reason: PAIN LEVEL 1-5 Last Admin: 10/01/19 06:13 Dose: 650 mg Ascorbic Acid (Vitamin C -) 500 mg PO DAILY [facility] Last Admin: 10/01/19 09:08 Dose: 500 mg Aspirin (Asa -) 81 mg PO DAILY [facility] Last Admin: 10/01/19 09:09 Dose: 81 mg Bethanechol Chloride (Urecholine -) 50 mg PO TID [facility] Last Admin: 10/01/19 13:06 Dose: 50 mg Finasteride (Proscar -) 5 mg PO DAILY [facility] Last Admin: 10/01/19 09:08 Dose: 5 mg Fluoxetine HCl 10 mg/ (Fluoxetine HCl 20 mg) 30 mg PO DAILY [facility] Last Admin: 10/01/19 09:10 Dose: 30 mg Furosemide (Lasix -) 20 mg PO BIDLASIX [facility] Last Admin: 10/01/19 13:05 Dose: 20 mg Heparin Sodium (Porcine) (Heparin -) 5,000 unit SQ BID [facility] Last Admin: 10/01/19 09:09 Dose: 5,000 unit Piperacillin Sod/Tazobactam (Sod 3.375 gm/ Dextrose) 50 mls @ 100 mls/hr IVPB Q8H-IV [facility]; Protocol Last Admin: 10/01/19 09:13 Dose: 100 mls/hr Lamotrigine (Lamictal -) 100 mg PO BID [facility] Last Admin: 10/01/19 09:09 Dose: 100 mg Metoprolol Succinate (Toprol Xl -) 12.5 mg PO DAILY [facility] Last Admin: 10/01/19 09:08 Dose: 12.5 mg Pramipexole Dihydrochloride (Mirapex -) 0.125 mg PO BID [facility] Last Admin: 10/01/19 09:08 Dose: 0.125 mg Tiotropium [place] (Spiriva Respimat) 2 puff IH DAILY [facility] Last Admin: 10/01/19 09:10 Dose: 2 puff - Objective Vital Signs: Vital Signs Temperature 98.7 F 02/15/20 08:14 Pulse Rate 98 H 10/01/19 08:14 Respiratory Rate 18 10/01/19 08:14 Blood Pressure 102/81 10/01/19 08:14 O2 Sat by Pulse Oximetry (%) 96 10/01/19 09:00 Constitutional: Yes: No Distress, Calm Cardiovascular: Yes: Regular Rate and Rhythm Respiratory: Yes: Regular Gastrointestinal: Yes: Normal Bowel Sounds, Soft Genitourinary: Yes: WNL Integumentary: Yes: Venous Stasis Changes Wound/Incision: Yes: Dressing Dry and Intact Neurological: Yes: Alert Labs: CBC, BMP 09/27/19 11:20 09/27/19 11:20 INR, PTT INR 1.13 (0.83-1.09) H 09/27/19 11:20 Microbiology 09/27/19 12:00 Blood - Peripheral Venous Blood Culture - Preliminary NO GROWTH OBTAINED AFTER 96 HOURS, INCUBATION TO CONTINUE FOR 1 DAYS. 09/27/19 11:41 Blood - Peripheral Venous Blood Culture - Preliminary NO GROWTH OBTAINED AFTER 96 HOURS, INCUBATION TO CONTINUE FOR 1 DAYS. 09/27/19 12:00 Leg - Left Lower Gram Stain - Final 09/27/19 12:00 Leg - Left Lower Wound Culture - Final Providencia Stuartii Escherichia Coli Beta Hem Streptococcus Group G Problem List - Problems (1) Cellulitis Code(s): L03.90 - CELLULITIS, UNSPECIFIED Qualifiers: Site of cellulitis: extremity Site of cellulitis of extremity: lower extremity Laterality: left Qualified Code(s): L03.116 - Cellulitis of left lower limb (2) HTN (hypertension) Code(s): I10 - ESSENTIAL (PRIMARY) HYPERTENSION (3) Venous stasis ulcer Code(s): I83.009 - VARICOSE VEINS OF UNSP LOWER EXTREMITY W ULCER OF UNSP SITE; L97.909 - NON-PRS CHRONIC ULC UNSP PRT OF UNSP LOW LEG W UNSP SEVERITY Qualifiers: Venous stasis ulcer site: other part of lower leg Varicose vein presence: unspecified whether present Laterality: left Non-pressure ulcer stage: unspecified non-pressure ulcer stage Qualified Code(s): I83.028 - Varicose veins of left lower extremity with ulcer other part of lower leg; L97.829 - Non- pressure chronic ulcer of other part of left lower leg with unspecified severity (4) Venous insufficiency Code(s): I87.2 - VENOUS INSUFFICIENCY (CHRONIC) (PERIPHERAL) Assessment/Plan LE infected venous stasis ulcers/cellulitis Venous insufficiency -- evaluated by Vascular surgeon, recommendations for wound care made, ? need for debridement -- still noted to have significant drainage from ulcers -- wound culture isolates noted, continue Lidia
--- NOTE | 2019-10-01 22:35 | PN ---
Progress Note, Physician - Current Medication List Current Medications: Active Medications Acetaminophen (Tylenol -) 650 mg PO Q6H PRN PRN Reason: FEVER Last Admin: 10/01/19 21:28 Dose: 650 mg Acetaminophen (Tylenol -) 650 mg PO Q6H PRN PRN Reason: PAIN LEVEL 1-5 Last Admin: 10/01/19 06:13 Dose: 650 mg Ascorbic Acid (Vitamin C -) 500 mg PO DAILY [facility] Last Admin: 10/01/19 09:08 Dose: 500 mg Aspirin (Asa -) 81 mg PO DAILY [facility] Last Admin: 10/01/19 09:09 Dose: 81 mg Bethanechol Chloride (Urecholine -) 50 mg PO TID [facility] Last Admin: 10/01/19 21:29 Dose: 50 mg Finasteride (Proscar -) 5 mg PO DAILY [facility] Last Admin: 10/01/19 09:08 Dose: 5 mg Fluoxetine HCl 10 mg/ (Fluoxetine HCl 20 mg) 30 mg PO DAILY [facility] Last Admin: 10/01/19 09:10 Dose: 30 mg Furosemide (Lasix -) 20 mg PO BIDLASIX [facility] Last Admin: 10/01/19 13:05 Dose: 20 mg Heparin Sodium (Porcine) (Heparin -) 5,000 unit SQ BID [facility] Last Admin: 10/01/19 21:28 Dose: 5,000 unit Piperacillin Sod/Tazobactam (Sod 3.375 gm/ Dextrose) 50 mls @ 100 mls/hr IVPB Q8H-IV [facility]; Protocol Last Admin: 10/01/19 17:25 Dose: 100 mls/hr Lamotrigine (Lamictal -) 100 mg PO BID [facility] Last Admin: 10/01/19 21:29 Dose: 100 mg Metoprolol Succinate (Toprol Xl -) 12.5 mg PO DAILY [facility] Last Admin: 10/01/19 09:08 Dose: 12.5 mg Pramipexole Dihydrochloride (Mirapex -) 0.125 mg PO BID [facility] Last Admin: 10/01/19 21:28 Dose: 0.125 mg Tiotropium [place] (Spiriva Respimat) 2 puff IH DAILY [facility] Last Admin: 10/01/19 09:10 Dose: 2 puff - Objective Vital Signs: Vital Signs Temperature 97.8 F 10/01/19 19:22 Pulse Rate 86 10/01/19 19:22 Respiratory Rate 18 10/01/19 08:14 Blood Pressure 101/63 10/01/19 19:22 O2 Sat by Pulse Oximetry (%) 96 10/01/19 09:00 Labs: CBC, BMP 09/27/19 11:20 09/27/19 11:20 INR, PTT INR 1.13 (0.83-1.09) H 09/27/19 11:20
[2019-10-02] MEDS: PIPERACILLIN/TAZOB 3.375 GM 3.375 GM in DEXTROSE 5%-WATER - 50 ML IVPB SCH ×2 (02:50→09:10)
[2019-10-02] MEDS ORDERED: PIPERACILLIN/TAZOBACTAM 3.375 GM VIAL IVPB ONE ×2 (02:50→08:15)
[2019-10-02] MEDS ORDERED: DEXTROSE 5%-WATER - 50 ML IVPB ONE ×2 (02:51→08:15)
[2019-10-02] MEDS: FUROSEMIDE 20 MG TABLET (FP) PO SCH ×2 (05:58→13:01)
[2019-10-02] MEDS: BETHANECHOL CHLORIDE 25 MG TABLET PO SCH ×3 (05:58→21:38)
[2019-10-02] MEDS: ACETAMINOPHEN 325 MG TABLET (FP) PO PRN ×2 (09:10→20:15)
[2019-10-02] MEDS: ASCORBIC ACID 500 MG TABLET (FP) PO SCH (09:10)
[2019-10-02] MEDS: HEPARIN NA (PORCINE) 5,000 UNITS/ML 1ML VIAL SQ SCH ×2 (09:11→21:38)
[2019-10-02] MEDS: ASPIRIN 81 MG CHEWABLE TABLETS PO SCH (09:11)
[2019-10-02] MEDS: TIOTROPIUM BROMIDE 2.5 MCG (SPIRIVA) RESPIMAT INHALER IH SCH (09:11)
[2019-10-02] MEDS: FINASTERIDE 5 MG TABLET (FP) PO SCH (09:11)
[2019-10-02] MEDS: metoPROLOL SUCCINATE 25 MG TAB.SR.24H (FP) PO SCH (09:11)
[2019-10-02] MEDS: PRAMIPEXOLE DIHYDROCHLORIDE 0.125 MG TABLET PO SCH ×2 (09:11→21:38)
[2019-10-02] MEDS ORDERED: PT OWN MED DRAWER 7, Y5N ONE ×3 (09:47→21:18)
[2019-10-02 10:04] LABS: BASO % 0.3 % (0-2.0); EOS % 2.7 % (0-4.5); HEMATOCRIT 32.6 % (32.4-45.2); HEMOGLOBIN 10.6 GM/dL (10.7-15.3); LYMPH % 18.1 % (8-40); MCH 28.6 pg (25.7-33.7); MCHC 32.7 g/dl (32.0-36.0); MEAN CELL VOLUME 87.6 fl (80-96); MEAN PLT VOLUME 7.5 fl (7.5-11.1); MONO % 6.1 % (3.8-10.2); NEUT % 72.8 % (42.8-82.8); PLATELET COUNT 173 K/MM3 (134-434); RBC 3.72 M/mm3 (3.60-5.2); RDW 15.6 % (11.6-15.6); WHITE BLOOD COUNT 5.9 K/mm3 (4.0-10.0)
[2019-10-02] MEDS: lamoTRIgine 100 MG TABLET PO SCH ×2 (10:05→22:55)
[2019-10-02] MEDS: FLUOXETINE HCL PO SCH (10:05)
[2019-10-02 10:53] LABS: BLOOD UREA NITROGEN 40.9 mg/dL (7-18); CALCIUM 8.8 mg/dL (8.5-10.1); CREATININE 1.3 mg/dL (0.55-1.3); POTASSIUM 4.1 mmol/L (3.5-5.1)
--- NOTE | 2019-10-02 15:00 | PN ---
Progress Note, Physician History of Present Illness: Pt with c/o LLE pain with touch. Sitting in chair. Remains afebrile. Generalized maculopapular rash she is scratching. Does not recall when it started but thinks it may have been prior to admission. - Current Medication List Current Medications: Active Medications Acetaminophen (Tylenol -) 650 mg PO Q6H PRN PRN Reason: FEVER Last Admin: 10/02/19 09:10 Dose: 650 mg Acetaminophen (Tylenol -) 650 mg PO Q6H PRN PRN Reason: PAIN LEVEL 1-5 Last Admin: 10/01/19 06:13 Dose: 650 mg Ascorbic Acid (Vitamin C -) 500 mg PO DAILY [facility] Last Admin: 10/02/19 09:10 Dose: 500 mg Aspirin (Asa -) 81 mg PO DAILY [facility] Last Admin: 10/02/19 09:11 Dose: 81 mg Bethanechol Chloride (Urecholine -) 50 mg PO TID [facility] Last Admin: 10/02/19 13:01 Dose: 50 mg Finasteride (Proscar -) 5 mg PO DAILY [facility] Last Admin: 10/02/19 09:11 Dose: 5 mg Fluoxetine HCl 10 mg/ (Fluoxetine HCl 20 mg) 30 mg PO DAILY [facility] Last Admin: 10/02/19 10:05 Dose: 30 mg Furosemide (Lasix -) 20 mg PO BIDLASIX [facility] Last Admin: 10/02/19 13:01 Dose: 20 mg Heparin Sodium (Porcine) (Heparin -) 5,000 unit SQ BID [facility] Last Admin: 10/02/19 09:11 Dose: 5,000 unit Piperacillin Sod/Tazobactam (Sod 3.375 gm/ Dextrose) 50 mls @ 100 mls/hr IVPB Q8H-IV [facility]; Protocol Last Admin: 10/02/19 09:10 Dose: 100 mls/hr Lamotrigine (Lamictal -) 100 mg PO BID [facility] Last Admin: 10/02/19 10:05 Dose: 100 mg Metoprolol Succinate (Toprol Xl -) 12.5 mg PO DAILY [facility] Last Admin: 10/02/19 09:11 Dose: 12.5 mg Pramipexole Dihydrochloride (Mirapex -) 0.125 mg PO BID [facility] Last Admin: 10/02/19 09:11 Dose: 0.125 mg Tiotropium [place] (Spiriva Respimat) 2 puff IH DAILY [facility] Last Admin: 10/02/19 09:11 Dose: 2 puff - Objective Vital Signs: Vital Signs Temperature 97.4 F L 10/02/19 14:42 Pulse Rate 83 10/02/19 14:42 Respiratory Rate 18 10/02/19 14:42 Blood Pressure 116/69 10/02/19 14:42 O2 Sat by Pulse Oximetry (%) 93 L 10/02/19 08:48 Constitutional: Yes: No Distress, Calm Cardiovascular: Yes: Regular Rate and Rhythm Respiratory: Yes: Regular Gastrointestinal: Yes: Normal Bowel Sounds, Soft Genitourinary: Yes: WNL Integumentary: Yes: Rash (generalized erythematous maculopapular rash , + pruritis) Wound/Incision: Yes: Dressing Dry and Intact (LLE wounds/venous stasis) Neurological: Yes: Alert Labs: CBC, BMP 10/02/19 09:49 10/02/19 09:49 INR, PTT INR 1.13 (0.83-1.09) H 09/27/19 11:20 Microbiology 09/27/19 12:00 Blood - Peripheral Venous Blood Culture - Final NO GROWTH AFTER 5 DAYS INCUBATION 09/27/19 11:41 Blood - Peripheral Venous Blood Culture - Final NO GROWTH AFTER 5 DAYS INCUBATION 09/27/19 12:00 Leg - Left Lower Gram Stain - Final 09/27/19 12:00 Leg - Left Lower Wound Culture - Final Providencia Stuartii Escherichia Coli Beta Hem Streptococcus Group G Problem List - Problems (1) Cellulitis Code(s): L03.90 - CELLULITIS, UNSPECIFIED Qualifiers: Site of cellulitis: extremity Site of cellulitis of extremity: lower extremity Laterality: left Qualified Code(s): L03.116 - Cellulitis of left lower limb (2) HTN (hypertension) Code(s): I10 - ESSENTIAL (PRIMARY) HYPERTENSION (3) Venous stasis ulcer Code(s): I83.009 - VARICOSE VEINS OF UNSP LOWER EXTREMITY W ULCER OF UNSP SITE; L97.909 - NON-PRS CHRONIC ULC UNSP PRT OF UNSP LOW LEG W UNSP SEVERITY Qualifiers: Venous stasis ulcer site: other part of lower leg Varicose vein presence: unspecified whether present Laterality: left Non-pressure ulcer stage: unspecified non-pressure ulcer stage Qualified Code(s): I83.028 - Varicose veins of left lower extremity with ulcer other part of lower leg; L97.829 - Non- pressure chronic ulcer of other part of left lower leg with unspecified severity (4) Venous insufficiency Code(s): I87.2 - VENOUS INSUFFICIENCY (CHRONIC) (PERIPHERAL) Assessment/Plan LE infected venous stasis ulcers/cellulitis Venous insufficiency Rash/pruritis ? drug allergy -- Pt with numerous antibiotic allergies, possibly having reaction to Zosyn currently -- will switch antibiotics to Levaquin and doxycycline -- still with significant drainage from ulcers, +edema/tenderness -- Vascular consult done -- instructed pt to elevate leg -- continue wound care
[2019-10-02] MEDS: DOXYCYCLINE INJECTION 100 MG in DEXTROSE 5%-WATER - 100 ML IVPB SCH (21:38)
--- NOTE | 2019-10-02 23:44 | PN ---
Progress Note, Physician - Current Medication List Current Medications: Active Medications Acetaminophen (Tylenol -) 650 mg PO Q6H PRN PRN Reason: FEVER Last Admin: 10/02/19 20:15 Dose: 650 mg Acetaminophen (Tylenol -) 650 mg PO Q6H PRN PRN Reason: PAIN LEVEL 1-5 Last Admin: 10/01/19 06:13 Dose: 650 mg Ascorbic Acid (Vitamin C -) 500 mg PO DAILY [facility] Last Admin: 10/02/19 09:10 Dose: 500 mg Aspirin (Asa -) 81 mg PO DAILY [facility] Last Admin: 10/02/19 09:11 Dose: 81 mg Bethanechol Chloride (Urecholine -) 50 mg PO TID [facility] Last Admin: 10/02/19 21:38 Dose: 50 mg Finasteride (Proscar -) 5 mg PO DAILY [facility] Last Admin: 10/02/19 09:11 Dose: 5 mg Fluoxetine HCl 10 mg/ (Fluoxetine HCl 20 mg) 30 mg PO DAILY [facility] Last Admin: 10/02/19 10:05 Dose: 30 mg Furosemide (Lasix -) 20 mg PO BIDLASIX [facility] Last Admin: 10/02/19 13:01 Dose: 20 mg Heparin Sodium (Porcine) (Heparin -) 5,000 unit SQ BID [facility] Last Admin: 10/02/19 21:38 Dose: 5,000 unit Levofloxacin (Levaquin 500 Mg Premixed Ivpb -) 500 mg in 100 mls @ 150 mls/hr IVPB DAILY@1700 [facility]; Protocol Last Admin: 10/02/19 17:09 Dose: 150 mls/hr Doxycycline Hyclate 100 mg/ (Dextrose) 100 mls @ 100 mls/hr IVPB BID [facility] Last Admin: 10/02/19 21:38 Dose: 100 mls/hr Lamotrigine (Lamictal -) 100 mg PO BID [facility] Last Admin: 10/02/19 22:55 Dose: 100 mg Metoprolol Succinate (Toprol Xl -) 12.5 mg PO DAILY [facility] Last Admin: 10/02/19 09:11 Dose: 12.5 mg Pramipexole Dihydrochloride (Mirapex -) 0.125 mg PO BID [facility] Last Admin: 10/02/19 21:38 Dose: 0.125 mg Tiotropium [place] (Spiriva Respimat) 2 puff IH DAILY [facility] Last Admin: 10/02/19 09:11 Dose: 2 puff - Objective Vital Signs: Vital Signs Temperature 97.4 F L 10/02/19 19:51 Pulse Rate 78 10/02/19 19:51 Respiratory Rate 18 10/02/19 14:42 Blood Pressure 128/71 10/02/19 19:51 O2 Sat by Pulse Oximetry (%) 93 L 10/02/19 08:48 Labs: CBC, BMP 10/02/19 09:49 10/02/19 09:49 INR, PTT INR 1.13 (0.83-1.09) H 09/27/19 11:20
[2019-10-03] MEDS: ACETAMINOPHEN 325 MG TABLET (FP) PO PRN (04:44)
[2019-10-03] MEDS: BETHANECHOL CHLORIDE 25 MG TABLET PO SCH (05:00)
[2019-10-03] MEDS: FUROSEMIDE 20 MG TABLET (FP) PO SCH (05:00)
[2019-10-03 06:05] VITALS: TEMP 97.5
[2019-10-03] MEDS: DOXYCYCLINE INJECTION 100 MG in DEXTROSE 5%-WATER - 100 ML IVPB SCH (10:39)
[2019-10-03] MEDS: FLUOXETINE HCL PO SCH (10:42)
[2019-10-03] MEDS: ASPIRIN 81 MG CHEWABLE TABLETS PO SCH (10:42)
[2019-10-03] MEDS: PRAMIPEXOLE DIHYDROCHLORIDE 0.125 MG TABLET PO SCH (10:43)
[2019-10-03] MEDS: ASCORBIC ACID 500 MG TABLET (FP) PO SCH (10:43)
[2019-10-03] MEDS: metoPROLOL SUCCINATE 25 MG TAB.SR.24H (FP) PO SCH (10:43)
[2019-10-03] MEDS: FINASTERIDE 5 MG TABLET (FP) PO SCH (10:43)
[2019-10-03] MEDS: lamoTRIgine 100 MG TABLET PO SCH (10:44)
--- NOTE | 2019-10-03 11:59 | DS ---
Physical Examination Vital Signs: Vital Signs Temperature 97.5 F L 10/03/19 06:00 Pulse Rate 84 10/03/19 06:00 Respiratory Rate 18 10/03/19 06:00 Blood Pressure 144/73 10/03/19 06:00 O2 Sat by Pulse Oximetry (%) 95 10/02/19 21:00 Constitutional: Yes: No Distress HENT: Yes: Atraumatic Neck: Yes: Supple Cardiovascular: Yes: Regular Rate and Rhythm Respiratory: Yes: CTA Bilaterally Gastrointestinal: Yes: Normal Bowel Sounds Extremities: Yes: Other (celluilitis llex improving) Neurological: Yes: Alert, Oriented Labs: CBC, BMP 10/02/19 09:49 10/02/19 09:49 Discharge Summary Problems reviewed: Yes Reason For Visit: CELLULITIS,VENOUS STASIS ULCER Current Active Problems Cellulitis (Acute) HTN (hypertension) (Acute) Venous stasis ulcer (Acute) Condition: Stable - Instructions Diet, Activity, Other Instructions: follow up pmd, ID and wound care in 2-3 days Disposition: [facility] FAC[facility] - Home Medications Comprehensive Discharge Medication List: Ambulatory Orders Acetaminophen [Tylenol] 2 tab PO Q6H PRN 01/07/19 Alendronate Sodium/Vitamin D3 [Fosamax Plus D 70 mg-5,600 Iu vIT d] 1 tab PO Q7D 01/07/19 Aspirin [ASA -] 81 mg PO DAILY 01/07/19 Bethanechol Chloride [Urecholine] 1 tab PO TID 01/07/19 Finasteride 1 tab PO DAILY 01/07/19 Furosemide [Lasix -] 20 mg PO BID 01/07/19 Lamotrigine 100 mg PO BID 01/07/19 Magnesium Hydroxide [Milk of Magnesia -] 30 ml PO DAILY PRN 01/07/19 Metoprolol Succinate [Toprol XL -] 12.5 mg PO DAILY 01/07/19 Multivitamin [One-Daily Multi-Vitamin] 1 tab PO DAILY 01/07/19 Olanzapine [Zyprexa -] 1 tab PO HS 01/07/19 Pramipexole Dihydrochloride [Mirapex -] 0.125 mg PO BID 01/07/19 Tiotropium [place] [Spiriva] 1 cap IH DAILY 01/07/19 Fluoxetine HCl 30 mg PO DAILY 04/01/19 Ascorbic Acid [Vitamin C -] 1 tab PO DAILY 04/15/19 Collagenase Clostridium Hist. [Santyl -] 1 applic TD BID 09/27/19 Lamotrigine 100 mg PO BID 09/27/19 Metoprolol Succinate 09/27/19 Doxycycline Hyclate 100 mg PO BID #20 tablet 10/03/19 Levofloxacin [Levaquin] 500 mg PO DAILY #10 tablet 10/03/19 dc snf follow ID and wound care
[2019-10-03 12:39] VITALS: BP 116/68; PULSE 95
--- NOTE | 2019-10-03 13:02 | PN ---
Progress Note, Physician History of Present Illness: stable wounds still draining had rash abx changed - Current Medication List Current Medications: Active Medications Acetaminophen (Tylenol -) 650 mg PO Q6H PRN PRN Reason: FEVER Last Admin: 10/03/19 04:44 Dose: 650 mg Acetaminophen (Tylenol -) 650 mg PO Q6H PRN PRN Reason: PAIN LEVEL 1-5 Last Admin: 10/01/19 06:13 Dose: 650 mg Ascorbic Acid (Vitamin C -) 500 mg PO DAILY [facility] Last Admin: 10/03/19 10:43 Dose: 500 mg Aspirin (Asa -) 81 mg PO DAILY [facility] Last Admin: 10/03/19 10:42 Dose: 81 mg Bethanechol Chloride (Urecholine -) 50 mg PO TID [facility] Last Admin: 10/03/19 05:00 Dose: 50 mg Finasteride (Proscar -) 5 mg PO DAILY [facility] Last Admin: 10/03/19 10:43 Dose: 5 mg Fluoxetine HCl 10 mg/ (Fluoxetine HCl 20 mg) 30 mg PO DAILY [facility] Last Admin: 10/03/19 10:42 Dose: 30 mg Furosemide (Lasix -) 20 mg PO BIDLASIX [facility] Last Admin: 10/03/19 05:00 Dose: 20 mg Heparin Sodium (Porcine) (Heparin -) 5,000 unit SQ BID [facility] Last Admin: 10/02/19 21:38 Dose: 5,000 unit Levofloxacin (Levaquin 500 Mg Premixed Ivpb -) 500 mg in 100 mls @ 150 mls/hr IVPB DAILY@1700 [facility]; Protocol Last Admin: 10/02/19 17:09 Dose: 150 mls/hr Doxycycline Hyclate 100 mg/ (Dextrose) 100 mls @ 100 mls/hr IVPB BID [facility] Last Admin: 10/03/19 10:39 Dose: 100 mls/hr Lamotrigine (Lamictal -) 100 mg PO BID [facility] Last Admin: 10/03/19 10:44 Dose: 100 mg Metoprolol Succinate (Toprol Xl -) 12.5 mg PO DAILY [facility] Last Admin: 10/03/19 10:43 Dose: 12.5 mg Pramipexole Dihydrochloride (Mirapex -) 0.125 mg PO BID [facility] Last Admin: 10/03/19 10:43 Dose: 0.125 mg Tiotropium [place] (Spiriva Respimat) 2 puff IH DAILY [facility] Last Admin: 10/02/19 09:11 Dose: 2 puff - Objective Vital Signs: Vital Signs Temperature 97.5 F L 10/03/19 06:00 Pulse Rate 95 H 10/03/19 10:00 Respiratory Rate 10/03/19 10:00 Blood Pressure 116/68 10/03/19 10:00 O2 Sat by Pulse Oximetry (%) 95 10/02/19 21:00 Constitutional: Yes: No Distress, Calm Cardiovascular: Yes: S1, S2 Respiratory: Yes: Regular, CTA Bilaterally Musculoskeletal: Yes: WNL Extremities: Yes: Other Wound/Incision: Yes: Dressing Dry and Intact Neurological: Yes: Alert, Oriented Psychiatric: Yes: Alert, Oriented Labs: CBC, BMP 10/02/19 09:49 10/02/19 09:49 INR, PTT INR 1.13 (0.83-1.09) H 09/27/19 11:20 Assessment/Plan Problem List Problem List - Problems (1) Cellulitis Code(s): L03.90 - CELLULITIS, UNSPECIFIED Qualifiers: Site of cellulitis: extremity Site of cellulitis of extremity: lower extremity Laterality: left Qualified Code(s): L03.116 - Cellulitis of left lower limb (2) HTN (hypertension) Code(s): I10 - ESSENTIAL (PRIMARY) HYPERTENSION (3) Venous stasis ulcer Code(s): I83.009 - VARICOSE VEINS OF UNSP LOWER EXTREMITY W ULCER OF UNSP SITE; L97.909 - NON-PRS CHRONIC ULC UNSP PRT OF UNSP LOW LEG W UNSP SEVERITY Qualifiers: Venous stasis ulcer site: other part of lower leg Varicose vein presence: unspecified whether present Laterality: left Non-pressure ulcer stage: unspecified non-pressure ulcer stage Qualified Code(s): I83.028 - Varicose veins of left lower extremity with ulcer other part of lower leg; L97.829 - Non- pressure chronic ulcer of other part of left lower leg with unspecified severity (4) Venous insufficiency Code(s): I87.2 - VENOUS INSUFFICIENCY (CHRONIC) (PERIPHERAL) Assessment/Plan LE infected venous stasis ulcers/cellulitis Venous insufficiency Rash/pruritis ? drug allergy plan continue abx wound care rest as per the team
== END 2019-10-03 13:25 | DRG 300 ==
LOC: JER 10:52 → JERBED 12:31 → J6S 17:55
PROVIDERS: ADMIT Internal Medicine; ATTEND Internal Medicine
DX: I83.025 Varicose veins of left lower extremity with ulcer other part of foot (principal); L03.116 Cellulitis of left lower limb; L97.829 Non-pressure chronic ulcer of other part of left lower leg with unspecified severity; J44.9 Chronic obstructive pulmonary disease, unspecified; I11.0 Hypertensive heart disease with heart failure; I50.9 Heart failure, unspecified; E11.9 Type 2 diabetes mellitus without complications; L97.529 Non-pressure chronic ulcer of other part of left foot with unspecified severity; F17.210 Nicotine dependence, cigarettes, uncomplicated; I87.2 Venous insufficiency (chronic) (peripheral); L27.0 Generalized skin eruption due to drugs and medicaments taken internally; T50.995A Adverse effect of other drugs, medicaments and biological substances, initial encounter
CPT/HCPCS: 36415; 71045-TC-FY; 73590-TC-LT-FY; 80048; 80053; 84484; 85025; 85610; 85651; 85730; 86140; 87040; 87070; 87077; 87186; 87205; 93005; 93010; 99285-25; G0463-25; J0131; J1644